=== PATIENT | female | born 1990 | race African-American/Black ===

== ENCOUNTER 2021-01-19 08:26 | Emergency (ER) | payer OTHER ==
[~2021-01-19] VITALS: Ht 152.4 cm; Wt 74.4 kg
[2021-01-19 09:15] LABS: CALCIUM 8.5 mg/dL (8.5-10.1); POTASSIUM 3.6 mmol/L (3.5-5.1)
[2021-01-19 09:19] LABS: URINE BILIRUBIN NEGATIVE (Negative); URINE BLOOD TRACE (Negative); URINE CLARITY CLEAR; URINE COLOR YELLOW; URINE GLUCOSE-RANDOM* NEGATIVE (Negative); URINE KETONES 1+ (Negative); URINE LEUKOCYTES-REFLEX TRACE (Negative); URINE NITRITE-REFLEX NEGATIVE (Negative); URINE PROTEIN (DIPSTICK) 1+ (Negative); URINE SPECIFIC GRAVITY >= 1.030 (1.005-1.035)
[2021-01-19 09:21] LABS: ALBUMIN 4.1 g/dL (3.4-5.0); DIRECT BILIRUBIN 0.2 mg/dL (<0.1-0.2); TOTAL BILIRUBIN 0.7 mg/dL (0.2-1.0); TOTAL PROTEIN 8.4 g/dL (6.4-8.2)
[2021-01-19 09:23] LABS: APTT 25.9 Seconds (24.5-32.8); HEMATOCRIT 37.9 % (37.0-47.0); HEMOGLOBIN 12.3 gm/dL (12.0-15.0); MCH 28.9 pg (26.0-34.0); MCHC 32.4 g/dL (28.0-37.0); MCV 88.9 fL (80.0-100.0); PLATELET COUNT 288 thou/uL (150-400); PROTIME 10.9 Seconds (9.3-11.4); RBC 4.27 mil/uL (4.20-5.00); RDW 15.9 % (10.5-14.5); WBC 3.6 thou/uL (4.0-11.0)
[2021-01-19 09:35] LABS: CASTS None Seen /LPF (None Seen); CRYSTALS None Seen /LPF (None Seen); MUCUS 0-3 Light strn/LPF (None Seen); SQUAMOUS 0-3 Few /LPF (0-3)
[2021-01-19 09:37] LABS: BACTERIA-REFLEX 1-9 Few /HPF (None Seen); URINE RBC 0-2 Rare /HPF (0-2); URINE WBC-REFLEX 0-5 Rare /HPF (0-5)
[2021-01-19 12:13] LABS: ABSOLUTE NEUTROPHILS 0.9 thou/uL (1.4-8.2)
[2021-01-19 12:14] LABS: ANISOCYTOSIS 1+
[2021-01-19 13:37] VITALS: BP 116/64
[2021-01-19] MEDS ORDERED: ZPAK PO (13:42)
[2021-01-20] MEDS ORDERED: ZOFRAN ODT4 MG PO (15:07)
== END 2021-01-19 13:43 | disposition home or self-care (01) ==
LOC: ER 08:26
PROVIDERS: Emergency Medicine
DX: J18.9 Pneumonia, unspecified organism (principal); E87.2 Acidosis; R11.2 Nausea with vomiting, unspecified; Z20.822 Contact with and (suspected) exposure to COVID-19

== ENCOUNTER 2021-01-20 12:01 | Emergency (ER) | payer OTHER ==
[~2021-01-20] VITALS: Ht 152.4 cm; Wt 73.5 kg
[~2021-01-20 12:01] MED LIST: ZPAK PO
[2021-01-20 13:05] LABS: URINE BLOOD NEGATIVE (Negative); URINE CLARITY CLEAR; URINE COLOR YELLOW; URINE GLUCOSE-RANDOM* NEGATIVE (Negative); URINE KETONES 1+ (Negative); URINE LEUKOCYTES-REFLEX TRACE (Negative); URINE NITRITE-REFLEX NEGATIVE (Negative); URINE PROTEIN (DIPSTICK) TRACE (Negative); URINE SPECIFIC GRAVITY 1.015 (1.005-1.035)
[2021-01-20 13:08] LABS: ICTOTEST (BILI CONFIRMATORY) Negative (Negative); URINE BILIRUBIN NEGATIVE (Negative)
[2021-01-20 14:13] LABS: ABSOLUTE NEUTROPHILS 2.4 thou/uL (1.4-8.2); BASOPHILS 0.5 % (0.0-2.0); EOSINOPHILS 0.9 % (0.0-3.0); HEMATOCRIT 38.4 % (37.0-47.0); HEMOGLOBIN 12.5 gm/dL (12.0-15.0); MCH 29.4 pg (26.0-34.0); MCHC 32.6 g/dL (28.0-37.0); MCV 90.2 fL (80.0-100.0); MONOCYTES 21.9 % (1.0-8.0); PLATELET COUNT 271 thou/uL (150-400); POLYS 58.7 % (36.0-66.0); RBC 4.25 mil/uL (4.20-5.00); RDW 15.3 % (10.5-14.5); WBC 4.1 thou/uL (4.0-11.0)
[2021-01-20 14:19] LABS: CALCIUM 9.1 mg/dL (8.5-10.1); POTASSIUM 3.6 mmol/L (3.5-5.1)
[2021-01-20 14:21] LABS: DIRECT BILIRUBIN 0.2 mg/dL (<0.1-0.2); TOTAL BILIRUBIN 0.8 mg/dL (0.2-1.0); TOTAL PROTEIN 8.4 g/dL (6.4-8.2)
[2021-01-20] MEDS ORDERED: ZOFRAN ODT4 MG PO (15:07)
--- NOTE | 2021-01-20 15:31 | EKG ---
[address] [address] ELECTROCARDIOGRAM REPORT Name: MARIN ASHFORD Room #: REG SASHA Haque#: [id number] Admission: 01/20/21 Attend Phys: Discharge: Date of : 86 Report #: [id number] [facility] ED Test Date: 2021-01-20 Test Time: 12:11:21 Pat Name: MARIN ASHFORD Department: Room: Gender: F [employer]: DERRICK : 1990 Requested By: Roberta Montiel Order Number: [id number] MD: Ronald Nicholson Measurements Intervals [place] Rate: 100 P: 62 KS: 129 QRS: 61 QRSD: 121 T: -1 QT: 350 QTc: 452 Interpretive Statements Sinus tachycardia Nonspecific intraventricular conduction delay No previous ECG available for comparison Electronically Signed On 01-20-2021 15:31:32 CDT by Ronald Nicholson [email or web address] <ELECTRONICALLY SIGNED> By: Ronald Nicholson MD, [facility] 01/20/21 1531 1211 1211 Ronald Nicholson MD, FACC /EPI
[2021-01-20 15:56] VITALS: BP 148/75
== END 2021-01-20 16:05 | disposition home or self-care (01) ==
LOC: ER 12:01
PROVIDERS: Emergency Medicine; Nurse Practitioner Family
DX: R10.13 Epigastric pain (principal); R11.10 Vomiting, unspecified; R07.89 Other chest pain; M54.5 Low back pain; F17.210 Nicotine dependence, cigarettes, uncomplicated

== ENCOUNTER 2021-04-10 08:31 | Emergency (ER) | payer OTHER ==
[~2021-04-10] VITALS: Ht 152.4 cm; Wt 73.5 kg
[~2021-04-10 08:31] MED LIST changes: +ZOFRAN ODT4 MG PO
[2021-04-10 08:47] LABS: URINE BILIRUBIN 1+ (Negative); URINE BLOOD NEGATIVE (Negative); URINE CLARITY CLEAR; URINE COLOR YELLOW; URINE GLUCOSE-RANDOM* NEGATIVE (Negative); URINE KETONES TRACE (Negative); URINE LEUKOCYTES-REFLEX NEGATIVE (Negative); URINE NITRITE-REFLEX NEGATIVE (Negative); URINE PROTEIN (DIPSTICK) TRACE (Negative); URINE SPECIFIC GRAVITY >= 1.030 (1.005-1.035)
[2021-04-10 08:49] LABS: ICTOTEST (BILI CONFIRMATORY) Positive (Negative)
[2021-04-10 08:54] LABS: HEMATOCRIT 36.4 % (37.0-47.0); HEMOGLOBIN 11.9 gm/dL (12.0-15.0); MCHC 32.7 g/dL (28.0-37.0); MCV 91.6 fL (80.0-100.0); PLATELET COUNT 200 thou/uL (150-400); RBC 3.97 mil/uL (4.20-5.00); WBC 3.1 thou/uL (4.0-11.0)
[2021-04-10 09:01] LABS: CALCIUM 8.6 mg/dL (8.5-10.1); CREATININE 0.9 mg/dL (0.6-1.0); POTASSIUM 3.7 mmol/L (3.5-5.1)
[2021-04-10 09:07] LABS: ALBUMIN 3.9 g/dL (3.4-5.0); TOTAL BILIRUBIN 0.2 mg/dL (0.2-1.0); TOTAL PROTEIN 7.8 g/dL (6.4-8.2)
[2021-04-10 09:17] LABS: ABSOLUTE NEUTROPHILS 0.5 thou/uL (1.4-8.2); ATYPICAL LYMPHS 1 %; PLATELET ESTIMATE NORMAL
[2021-04-10 09:53] LABS: INR 0.97; PROTIME 10.6 Seconds (10.5-12.1)
[2021-04-10] MEDS ORDERED: ZOFRAN ODT4 MG PO (12:31)
[2021-04-10 12:33] VITALS: BP 130/96
== END 2021-04-10 12:33 | disposition home or self-care (01) ==
LOC: ER 08:31
PROVIDERS: Emergency Medicine Emergency Medical Services
DX: R11.2 Nausea with vomiting, unspecified (principal); R53.1 Weakness; R05 Cough; R06.02 Shortness of breath